=== PATIENT | female | born 1925 | race Caucasian/White ===

== ENCOUNTER 2016-10-02 17:00 | Emergency (ER) | payer MEDICARE, BC, MEDICAID ==
[2016-10-02 17:13] VITALS: BP 120/47
[2016-10-02] MEDS ORDERED: Sodium Chloride 0.9% 10 ML Syringe FLUSH PRN (17:13)
[2016-10-02 18:00] LABS: CHLORIDE,CL 99 mmol/L (101-111); SODIUM,NA 138 mmol/L (135-145)
[2016-10-02] MEDS ORDERED: Sulfamethoxazole/Trimethoprim 800-160 MG Tab PO ONE (19:02)
--- NOTE | 2016-10-02 19:06 | EDM.PDOC ---
{null, ED HPI GENERAL MEDICAL PROBLEM - General Source of Information: Reports: Family, RN, Other (spoke with the DESKTOP SPECIALIST at the [facility] for history taking as well.) History Limitations: Reports: Altered Mental Status <Ochoa Espinosa - Last Filed: 10/02/16 19:07> <Eron Doherty - Last Filed: 10/02/16 19:24> - General Chief Complaint: Neurological Problem Stated Complaint: BY AMBULANCE Time Seen by Provider: 10/02/16 17:15 - History of Present Illness INITIAL COMMENTS - FREE TEXT/NARRATIVE: patient comes emergency Department today by ambulance from the [facility] where she lives in [facility]. History taking from the patient limited as she is rather confused on arrival. I spoke with his DESKTOP SPECIALIST at the [facility] and she reports that the patient was sitting at the dinner table yelled out and was found shaking on the ground. According to the EMS she was postictal and slowly started to wake up. His DESKTOP SPECIALIST reports that this has happened multiple times last time about 2 months ago. The daughter who is an [employer] also reports the same information. She has been worked up for this many times and they have decided not to seek any further treatment due to the rather advanced stage of dementia/Alzheimer's that the patient has. She is a DNR/DNI at this time. Upon arrival the patient is alert she does not answer any questions. (Ochoa Espinosa) - Related Data Allergies Allergy/AdvReac Type Severity Reaction Status Date / Time ceftriaxone Allergy Cannot Verified 10/02/16 17:25 Remember ceftriaxone sodium Allergy Cannot Verified 10/02/16 17:25 [From Rocephin] Remember cefuroxime Allergy Cannot Verified 10/02/16 17:25 Remember flu vaccine ts 2012-(6 Allergy Cannot Verified 10/02/16 17:25 mos+) Remember [From Fluzone [id number]] fluoxetine Allergy Cannot Verified 10/02/16 17:25 Remember hydrochlorothiazide Allergy Cannot Verified 10/02/16 17:25 Remember influenza virus vacc Allergy Cannot Verified 10/02/16 17:25 trivalent, split Remember [From Fluzone] levofloxacin [From Levaquin] Allergy Cannot Verified 10/02/16 17:25 Remember lisinopril Allergy Cannot Verified 10/02/16 17:25 Remember NSAIDS (Non-Steroidal Allergy Cannot Verified 10/02/16 17:25 Anti-Inflamma Remember Penicillins Allergy Cannot Verified 06/03/16 07:10 Remember Home Meds: Home Meds Acetaminophen [Pain Relief] 500 mg PO Q6H PRN 05/09/13 [History] Albuterol Sulfate [Albuterol Sulfate HFA] 2 puff IH QID 05/09/13 [History] Calcium Carb & Citrate/Vit D3 [Calcium + D3 ER Tablet] 1 tab PO BID 05/09/13 [ History] Docusate Sodium [Colace] 100 mg PO DAILY PRN 05/09/13 [History] Fexofenadine HCl [Mary Jane] 180 mg PO DAILY PRN 05/09/13 [History] Furosemide [Lasix] 60 mg PO BID 05/09/13 [History] Lutein/Minerals/Vit A,C & E [I-Mirlande] 1 each PO DAILY 05/09/13 [History] Multivitamin with Minerals [Multiple Vitamin] 1 tab PO DAILY 05/09/13 [History] Omeprazole [Prilosec] 40 mg PO DAILY 05/09/13 [History] Pravastatin [Pravachol] 80 mg PO BEDTIME 05/09/13 [History] Metolazone [Zaroxolyn] 2.5 mg PO .TIW 09/18/13 [History] Metoprolol Succinate [Toprol XL] 25 mg PO DAILY 09/18/13 [History] Potassium Chloride [K-Tab ER] 40 meq PO BID 09/18/13 [History] Allopurinol [Zyloprim] 100 mg PO BID 03/28/14 [History] Docusate Calcium [Surfak] 480 mg PO DAILY 03/28/14 [History] traMADol [Ultram] 50 mg PO Q6H PRN 03/28/14 [History] Mag Hydrox/Al Hydrox/Simeth [Maalox Maximum Strength Susp] 30 ml PO TID PRN 06/30 [History] Potassium Chloride 20 meq PO DAILY 01/15/16 [History] Spironolactone [Aldactone] 25 mg PO DAILY 01/15/16 [History] LORazepam 0.5 mg PO BID PRN 06/03/16 [History] Past Medical History HEENT History: Reports: Hard of Hearing, Impaired Vision, Macular Degeneration Cardiovascular History: Reports: CAD, Heart Failure, High Cholesterol, Hypertension Respiratory History: Reports: COPD Gastrointestinal History: Reports: Gastritis, GI Bleed, Helicobacter Pylori Genitourinary History: Reports: UTI, Recurrent MEDICAL DIRECTOR OF HOSPICE History: Reports: None Musculoskeletal History: Reports: Arthritis, Other (See Below) Other Musculoskeletal History: degenerative disk disease Neurological History: Reports: Seizure Psychiatric History: Reports: Dementia Other Psychiatric History: more frequesnt levels of confusion. Usually O2 is low Hematologic History: Reports: None Immunologic History: Reports: None - Past Surgical History HEENT Surgical History: Reports: Other (See Below) Musculoskeletal Surgical History: Reports: Other (See Below) <Eron Doherty - Last Filed: 10/02/16 19:24> Social & Family History - Family History Family Medical History: Unobtainable - Tobacco Use Smoking Status *Q: Former Smoker Years of Tobacco use: 40 Packs/Tins Daily: 1 Used Tobacco, but Quit: Yes Month Tobacco Last Used: unknown Second Hand Smoke Exposure: No - Caffeine Use Caffeine Use: Reports: None - Alcohol Use Days Per Week of Alcohol Use: 0 - Recreational Drug Use Recreational Drug Use: No Drug Use in Last 12 Months: No - Living Situation & Occupation Living situation: Reports: , Assisted Living Occupation: Retired <Eron Doherty - Last Filed: 10/02/16 19:24> ED ROS GENERAL - Review of Systems Review Of Systems: Unable To Obtain <Ochoa Espinosa - Last Filed: 10/02/16 19:07> - Physical Exam Exam: See Below Exam Limited By: Altered Mental Status General Appearance: Alert, No Apparent Distress Eye Exam: Bilateral Eye: Normal Inspection, PERRL (2 mm PERRLA brisk bilaterally ) Ears: Normal External Exam, Normal Canal, Normal TMs Nose: Normal Inspection, Normal Mucosa, No Blood Throat/Mouth: Normal Inspection, Normal Lips, Normal Oropharynx Head Exam: Atraumatic, Normocephalic Neck: Normal Inspection, Supple, Non-Tender, Full Range of Motion Respiratory/Chest: No Respiratory Distress, Lungs Clear, Normal Breath Sounds, No Accessory Muscle Use Cardiovascular: Normal Peripheral Pulses, Regular Rate, Rhythm, No Murmur GI/Abdominal: Normal Bowel Sounds, Soft, No Distention, No Abnormal Bruit (Female) Exam: Deferred Rectal (Female) Exam: Deferred Neuro Exam (Abbreviated): Alert, Confused, Other (constantly fidgeting and playing with the sheets and the wires. Cooperative but needs redirecting to stay in the bed a time. Does not offer any verbal information.). No: Abnormal Reflexes, Sensory/Motor Deficit Back Exam: Normal Inspection, Full Range of Motion Extremities: Normal Inspection, Normal Capillary Refill, Pedal Edema (2+ edema bilaterally. Which is normal according to the daughter.) Psychiatric: Flat Affect Skin Exam: Warm, Dry, Intact, Normal Color, No Rash <Ochoa Espinosa - Last Filed: 10/02/16 19:07> <Eron Doherty - Last Filed: 10/02/16 19:24> - Physical Exam Text/Narrative:: on arrival the patient is alert and moving all extremities spontaneously. She does not give any verbal information. She is constantly fidgeting playing and pulling the sheets and cords of the bed. Head to toe rapid tremor assessment does not identify any trauma. No hematoma abrasions contusions swelling or breaks in the skin consistent with her fall.the daughter is at the bedside and reports that this is the typical mentation and activity following these episodes of a questionable seizure. (Ochoa Espinosa) EKG INTERPRETATION EKG Date: 10/02/16 Time: 17:07 Rhythm: NSR Rate (beats/min): 109 [place]: normal P-wave: present QRS: normal ST-T: normal QT: normal Comparison: no change <Ochoa Espinosa - Last Filed: 10/02/16 19:07> Course <Ochoa Espinosa - Last Filed: 10/02/16 19:07> <Eron Doherty - Last Filed: 10/02/16 19:24> - Vital Signs Last Recorded V/S: Last Vital Signs Temp 37.3 C 10/02/16 17:13 Pulse 102 H 10/02/16 17:13 Resp 14 10/02/16 17:13 BP 120/47 L 10/02/16 17:13 Pulse Ox 90 L 10/02/16 17:13 (Ochoa Espinosa) (Eron Doherty) - Orders/Labs/Meds Orders: Active Orders 24 hr Category Date Time Status Peripheral IV Care [RC] . DIRECTED Care 10/02/16 17:14 Active Head wo Cont [CT] Stat Exams 10/02/16 17:14 Taken Sodium Chloride 0.9% [Saline Flush] Med 10/02/16 17:13 Active 10 ml FLUSH ASDIRECTED PRN Peripheral IV Insertion Adult [OM.PC] Stat Oth 10/02/16 17:13 Ordered Medication Orders Sodium Chloride (Saline Flush) 10 ml FLUSH ASDIRECTED PRN PRN Reason: Keep Vein Open (Ochoa Espinosa) (Eron Doherty) Labs: Laboratory Tests 10/02/16 10/02/16 10/02/16 Range/Units 17:20 17:30 17:30 WBC 7.1 (5.0-10.0) 10^3/uL RBC 4.48 (4.2-5.4) 10^6/uL Hgb 12.0 (12.0-16.0) g/dL Hct 38.8 (37.0-47.0) % MCV 86.6 (80-100) fL MCH 26.8 L (27.0-34.0) pg MCHC 30.9 L (33.0-35.0) g/dL Plt Count 219 (150-450) 10^3/uL Neut % (Auto) 56.6 (42.2-75.2) % Lymph % (Auto) 30.1 (20.5-50.1) % [place] % (Auto) 10.3 H (2-8) % Eos % (Auto) 2.7 (1.0-3.0) % Baso % (Auto) 0.3 (0.0-1.0) % Sodium 138 (135-145) mmol/L Potassium 4.0 (3.6-5.0) mmol/L Chloride 99 L (101-111) mmol/L Carbon Dioxide 26.0 (21.0-31.0) mmol/L Anion Gap 17.0 BUN 42 H (7-18) mg/dL Creatinine 1.5 H (0.6-1.3) mg/dL Est Cr Clr Drug Dosing 22.39 mL/min Estimated GFR (MDRD) 33 BUN/Creatinine Ratio 28.00 Glucose 136 H (74-105) mg/dL Calcium 9.4 (8.4-10.2) mg/dl Total Bilirubin 0.5 (0.2-1.0) mg/dL AST 31 (10-42) IU/L ALT 15 (10-60) IU/L Alkaline Phosphatase 51 (42-121) IU/L Troponin I < 0.02 (0.00-0.02) ng/ml Total Protein 6.7 (6.7-8.2) g/dl Albumin 3.7 (3.2-5.5) g/dl Globulin 3.0 Albumin/Globulin Ratio 1.23 Urine Color Yellow (YELLOW) Urine Appearance Slightly cloudy (CLEAR) Urine pH 7.0 (5.0-9.0) Ur Specific [place] 1.015 (1.005-1.030) Urine Protein Negative (NEGATIVE) Urine Glucose (UA) Negative (NEGATIVE) Urine Ketones Negative (NEGATIVE) Urine Occult Blood Negative (NEGATIVE) Urine Nitrite Negative (NEGATIVE) Urine Bilirubin Negative (NEGATIVE) Urine Urobilinogen 0.2 (0.2-1.0) mg/dL Ur Leukocyte Esterase Small H (NEGATIVE) Urine RBC 0-5 /HPF Urine WBC 10-20 H (0-5/HPF) /HPF Ur Epithelial Cells Few /HPF Amorphous Sediment Few (0/HPF) /HPF Urine Bacteria Few (0-FEW/HPF) /HPF Urine Mucus Few H /LPF (Ochoa Espinosa) (Eron Doherty) Meds: Medications Generic Name Dose Route Start Last Admin Trade Name Freq PRN Reason Stop Dose Admin Sodium Chloride 10 ml 10/02/16 17:13 Saline Flush FLUSH ASDIRECTED PRN Keep Vein Open Discontinued Medications Generic Name Dose Route Start Last Admin Trade Name Freq PRN Reason Stop Dose Admin Trimethoprim/Sulfamethoxazole 1 tab 10/02/16 19:02 10/02/16 19:18 Septra Ds PO 10/02/16 19:03 1 tab ONETIME ONE Administration (Ochoa Espinosa) (Eron Doherty) - Radiology Interpretation Free Text/Narrative:: CT of the head per radiology no acute intercranial process. Senescent changes of the brain are present. No significant interval change when compared to the CT of 06/03/16. (Ochoa Espinosa) - Re-Assessments/Exams Free Text/Narrative Re-Assessment/Exam: 10/02/16 19:14 HPI ER course findings and care of patient relayed to Dr. Doherty and he assumes care of the patient at this time. The patient is now offering verbal information. And back to baseline according to the daughter. (Ochoa Espinosa ) 10/02/16 19:03 results discussed with family who states Pt has these seizure like activities regularly. only needs to make sure there isn't anything else wrong. also gives h /o UTI and tolerates bactrim well. (Eron Doherty) Departure <Ochoa Espinosa - Last Filed: 10/02/16 19:07> - Departure Time of Disposition: 19:24 Condition: good <Eron Doherty - Last Filed: 10/02/16 19:24> - Departure Disposition: Home, Self-Care 01 Clinical Impression: UTI (urinary tract infection), uncomplicated - Discharge Information Instructions: Urinary Tract Infection, Adult, [id number] Referrals: PCP,None [Primary Care Provider] - Forms: ED Department Discharge Additional Instructions: 1) drink lots of liquids 2) follow up with clinic for repeat u/a in 4 to 5 days 3) recheck as needed rx given: bactrim DS bid x 20 }
--- NOTE | 2016-10-04 13:54 | EKG ---
{null, 10/02/2016- KATTY CASANOVA - 12-lead EKG shows normal sinus rhythm with a heart rate of 109, shows occasional PVCs. 12-lead EKG consistent with left ventricular hypertrophy and possible left atrial enlargement. No significant ST elevation or ST depression noted on this 12-lead EKG. Nonspecific ST-T wave changes noted on lead V3, V4. [facility] /[id number] }
== END 2016-10-02 19:25 | disposition home or self-care (01) ==
LOC: DL.ED 17:00
DX: N39.0 Urinary tract infection, site not specified (principal); I25.10 Atherosclerotic heart disease of native coronary artery without angina pectoris; I11.0 Hypertensive heart disease with heart failure; I50.9 Heart failure, unspecified; E78.00 Pure hypercholesterolemia, unspecified; J44.9 Chronic obstructive pulmonary disease, unspecified; M19.90 Unspecified osteoarthritis, unspecified site; F03.90 Unspecified dementia, unspecified severity, without behavioral disturbance, psychotic disturbance, mood disturbance, and anxiety; Z87.891 Personal history of nicotine dependence; Z79.899 Other long term (current) drug therapy; Z88.0 Allergy status to penicillin; Z88.1 Allergy status to other antibiotic agents; Z88.7 Allergy status to serum and vaccine; Z88.8 Allergy status to other drugs, medicaments and biological substances
CPT/HCPCS: 36415; 70450; 80053; 81001; 84484; 85025; 93005; 93010; 99285; A9270; 99284

== ENCOUNTER 2016-10-06 02:46 | Emergency (ER) | payer MEDICARE, BC, MEDICAID ==
[2016-10-06 02:51] VITALS: BP 97/52
--- NOTE | 2016-10-06 02:57 | EDM.PDOC ---
ED HPI GENERAL MEDICAL PROBLEM - General Chief Complaint: Lower Extremity Injury/Pain Stated Complaint: IN BY AMBULANCE Time Seen by Provider: 10/06/16 02:48 Source of Information: Reports: Patient, EMS History Limitations: Reports: Other (dementia) - History of Present Illness INITIAL COMMENTS - FREE TEXT/NARRATIVE: Fall reported at Assisted living, patient c/o pain to left hip. Prior to fall [place] intermittent dozing and watching TV, Found seated on floor. Awake, alert. Baseline with alzheimers dementia. Last ED visit on patient was noted to be DNR DNI. Onset: Today Location: Reports: Lower Extremity, Left Left Hip Pain Score (Numeric/FACES): 7 - Related Data Allergies Allergy/AdvReac Type Severity Reaction Status Date / Time ceftriaxone Allergy Cannot Verified 10/06/16 02:52 Remember ceftriaxone sodium Allergy Cannot Verified 10/06/16 02:52 [From Rocephin] Remember cefuroxime Allergy Cannot Verified 10/06/16 02:52 Remember flu vaccine ts 2012-(6 Allergy Cannot Verified 10/06/16 02:52 mos+) Remember [From Fluzone [id number]] fluoxetine Allergy Cannot Verified 10/06/16 02:52 Remember hydrochlorothiazide Allergy Cannot Verified 10/06/16 02:52 Remember influenza virus vacc Allergy Cannot Verified 10/06/16 02:52 trivalent, split Remember [From Fluzone] levofloxacin [From Levaquin] Allergy Cannot Verified 10/06/16 02:52 Remember lisinopril Allergy Cannot Verified 10/06/16 02:52 Remember NSAIDS (Non-Steroidal Allergy Cannot Verified 10/06/16 02:52 Anti-Inflamma Remember Penicillins Allergy Cannot Verified 10/06/16 02:52 Remember Home Meds: Home Meds Acetaminophen [Pain Relief] 500 mg PO Q6H PRN 05/09/13 [History] Albuterol Sulfate [Albuterol Sulfate HFA] 2 puff IH QID 05/09/13 [History] Calcium Carb & Citrate/Vit D3 [Calcium + D3 ER Tablet] 1 tab PO BID 05/09/13 [ History] Docusate Sodium [Colace] 100 mg PO DAILY PRN 05/09/13 [History] Fexofenadine HCl [Mary Jane] 180 mg PO DAILY PRN 05/09/13 [History] Furosemide [Lasix] 60 mg PO BID 05/09/13 [History] Lutein/Minerals/Vit A,C & E [I-Mirlande] 1 each PO DAILY 05/09/13 [History] Multivitamin with Minerals [Multiple Vitamin] 1 tab PO DAILY 05/09/13 [History] Omeprazole [Prilosec] 40 mg PO DAILY 05/09/13 [History] Pravastatin [Pravachol] 80 mg PO BEDTIME 05/09/13 [History] Metolazone [Zaroxolyn] 2.5 mg PO .TIW 09/18/13 [History] Metoprolol Succinate [Toprol XL] 25 mg PO DAILY 09/18/13 [History] Potassium Chloride [K-Tab ER] 40 meq PO BID 09/18/13 [History] Allopurinol [Zyloprim] 100 mg PO BID 03/28/14 [History] Docusate Calcium [Surfak] 480 mg PO DAILY 03/28/14 [History] traMADol [Ultram] 50 mg PO Q6H PRN 03/28/14 [History] Mag Hydrox/Al Hydrox/Simeth [Maalox Maximum Strength Susp] 30 ml PO TID PRN 06/30 [History] Potassium Chloride 20 meq PO DAILY 01/15/16 [History] Spironolactone [Aldactone] 25 mg PO DAILY 01/15/16 [History] LORazepam 0.5 mg PO BID PRN 06/03/16 [History] Past Medical History HEENT History: Reports: Hard of Hearing, Impaired Vision, Macular Degeneration Cardiovascular History: Reports: CAD, Heart Failure, High Cholesterol, Hypertension Respiratory History: Reports: COPD Gastrointestinal History: Reports: Gastritis, GI Bleed, Helicobacter Pylori Genitourinary History: Reports: UTI, Recurrent [employer] History: Reports: None Musculoskeletal History: Reports: Arthritis, Other (See Below) Other Musculoskeletal History: degenerative disk disease Neurological History: Reports: Seizure Psychiatric History: Reports: Dementia Other Psychiatric History: more frequesnt levels of confusion. Usually O2 is low Hematologic History: Reports: None Immunologic History: Reports: None - Past Surgical History HEENT Surgical History: Reports: Other (See Below) Musculoskeletal Surgical History: Reports: Other (See Below) Social & Family History - Family History Family Medical History: Unobtainable - Tobacco Use Smoking Status *Q: Former Smoker Years of Tobacco use: 40 Packs/Tins Daily: 1 Used Tobacco, but Quit: Yes Month Tobacco Last Used: unknown Second Hand Smoke Exposure: No - Caffeine Use Caffeine Use: Reports: None - Alcohol Use Days Per Week of Alcohol Use: 0 - Recreational Drug Use Recreational Drug Use: No Drug Use in Last 12 Months: No - Living Situation & Occupation Living situation: Reports: , Assisted Living Occupation: Retired Review of Systems - Review of Systems Review Of Systems: ROS reveals no pertinent complaints other than HPI. Eyes: Reports: Glasses Trauma Exam - Physical Exam Exam: See Below Exam Limited By: No Limitations General Appearance: Reports: Alert, Mild Distress (with movement) Head: Reports: Atraumatic, Normocephalic. Denies: Scalp Ecchymosis, Scalp Hematoma, Scalp Tenderness, Facial Lacerations, [place] Eyes Eyes: Bilateral Eye: EOMI Ears: Reports: Normal External Exam, Normal TMs Nose: Reports: Normal Inspection Throat/Mouth: Reports: Other (upper and lower dentures) Neck: Reports: Non-Tender, Full Range of Motion Respiratory Exam: Reports: No Respiratory Distress, Lungs Clear, Normal Breath Sounds Cardiovascular: Reports: Normal Peripheral Pulses, Regular Rate, Rhythm GI/Abdominal: Reports: Normal Bowel Sounds, Soft, Non-Tender Extremities: Bony-Point Tenderness (left hip ), Pain with Movement, Unable to Bear Weight, Other (pain with minimal movement left hip, leg shortening mild external rotation, deformity at hip. ) Neurologic: Reports: Alert Skin: Reports: Normal Color, Warm/Dry - [place] Coma Score Best Eye Response ([place]): (4) Open Spontaneously Best Verbal Response ([place]): (4) Confused Conversation Best Motor Response ([place]): (6) Obeys Commands Nath[place] Total: 14 Course - Vital Signs Last Recorded V/S: Last Vital Signs Temp 96.6 F 10/06/16 02:50 Pulse 79 10/06/16 02:50 Resp 16 10/06/16 02:50 BP 97/52 L 10/06/16 02:50 Pulse Ox 92 L 10/06/16 02:50 - Orders/Labs/Meds Orders: Active Orders 24 hr Category Date Time Status EKG 12 Lead [EKG Documentation Completion] [RC] URGENT Care 10/06/16 03:03 Active Head wo Cont [CT] Urgent Exams 10/06/16 03:11 Taken Pelvis wo Cont [CT] Urgent Exams 10/06/16 03:16 Taken Labs: Laboratory Tests 10/06/16 10/06/16 10/06/16 Range/Units 03:36 03:36 03:36 WBC 5.3 (5.0-10.0) 10^3/uL RBC 3.94 L (4.2-5.4) 10^6/uL Hgb 10.5 L (12.0-16.0) g/dL Hct 34.2 L (37.0-47.0) % MCV 86.8 (80-100) fL MCH 26.6 L (27.0-34.0) pg MCHC 30.7 L (33.0-35.0) g/dL Plt Count 197 (150-450) 10^3/uL Neut % (Auto) 71.7 (42.2-75.2) % Lymph % (Auto) 15.6 L (20.5-50.1) % [place] % (Auto) 10.0 H (2-8) % Eos % (Auto) 2.3 (1.0-3.0) % Baso % (Auto) 0.4 (0.0-1.0) % Sodium 139 (135-145) mmol/L Potassium 4.3 (3.6-5.0) mmol/L Chloride 101 (101-111) mmol/L Carbon Dioxide 29.0 (21.0-31.0) mmol/L Anion Gap 13.3 BUN 48 H (7-18) mg/dL Creatinine 2.5 H (0.6-1.3) mg/dL Est Cr Clr Drug Dosing TNP Estimated GFR (MDRD) 18 BUN/Creatinine Ratio 19.20 Glucose 110 H (74-105) mg/dL Calcium 9.2 (8.4-10.2) mg/dl Total Bilirubin 0.4 (0.2-1.0) mg/dL AST 28 (10-42) IU/L ALT 17 (10-60) IU/L Alkaline Phosphatase 44 (42-121) IU/L Troponin I < 0.02 (0.00-0.02) ng/ml B-Natriuretic Peptide 167 H (0-100) pg/ml Total Protein 6.1 L (6.7-8.2) g/dl Albumin 3.5 (3.2-5.5) g/dl Globulin 2.6 Albumin/Globulin Ratio 1.35 Urine Color (YELLOW) Urine Appearance (CLEAR) Urine pH (5.0-9.0) Ur Specific [place] (1.005-1.030) Urine Protein (NEGATIVE) Urine Glucose (UA) (NEGATIVE) Urine Ketones (NEGATIVE) Urine Occult Blood (NEGATIVE) Urine Nitrite (NEGATIVE) Urine Bilirubin (NEGATIVE) Urine Urobilinogen (0.2-1.0) mg/dL Ur Leukocyte Esterase (NEGATIVE) Urine RBC /HPF Urine WBC (0-5/HPF) /HPF Ur Epithelial Cells /HPF Amorphous Sediment (0/HPF) /HPF Urine Bacteria (0-FEW/HPF) /HPF 10/06/16 Range/Units 03:50 WBC (5.0-10.0) 10^3/uL RBC (4.2-5.4) 10^6/uL Hgb (12.0-16.0) g/dL Hct (37.0-47.0) % MCV (80-100) fL MCH (27.0-34.0) pg MCHC (33.0-35.0) g/dL Plt Count (150-450) 10^3/uL Neut % (Auto) (42.2-75.2) % Lymph % (Auto) (20.5-50.1) % [place] % (Auto) (2-8) % Eos % (Auto) (1.0-3.0) % Baso % (Auto) (0.0-1.0) % Sodium (135-145) mmol/L Potassium (3.6-5.0) mmol/L Chloride (101-111) mmol/L Carbon Dioxide (21.0-31.0) mmol/L Anion Gap BUN (7-18) mg/dL Creatinine (0.6-1.3) mg/dL Est Cr Clr Drug Dosing Estimated GFR (MDRD) BUN/Creatinine Ratio Glucose (74-105) mg/dL Calcium (8.4-10.2) mg/dl Total Bilirubin (0.2-1.0) mg/dL AST (10-42) IU/L ALT (10-60) IU/L Alkaline Phosphatase (42-121) IU/L Troponin I (0.00-0.02) ng/ml B-Natriuretic Peptide (0-100) pg/ml Total Protein (6.7-8.2) g/dl Albumin (3.2-5.5) g/dl Globulin Albumin/Globulin Ratio Urine Color Yellow (YELLOW) Urine Appearance Slightly cloudy (CLEAR) Urine pH 7.0 (5.0-9.0) Ur Specific [place] 1.015 (1.005-1.030) Urine Protein Negative (NEGATIVE) Urine Glucose (UA) Negative (NEGATIVE) Urine Ketones Negative (NEGATIVE) Urine Occult Blood Negative (NEGATIVE) Urine Nitrite Positive H (NEGATIVE) Urine Bilirubin Negative (NEGATIVE) Urine Urobilinogen 0.2 (0.2-1.0) mg/dL Ur Leukocyte Esterase Moderate H (NEGATIVE) Urine RBC 0-5 /HPF Urine WBC 20-30 H (0-5/HPF) /HPF Ur Epithelial Cells Few /HPF Amorphous Sediment Moderate H (0/HPF) /HPF Urine Bacteria Moderate H (0-FEW/HPF) /HPF Meds: Medications Discontinued Medications Generic Name Dose Route Start Last Admin Trade Name Freq PRN Reason Stop Dose Admin Morphine Sulfate 2 mg 10/06/16 03:44 10/06/16 03:51 Morphine IVPUSH 10/06/16 03:45 2 mg ONETIME ONE Administration Ondansetron HCl 4 mg 10/06/16 03:45 10/06/16 03:51 Zofran IV 10/06/16 03:46 4 mg ONETIME ONE Administration - Radiology Interpretation Free Text/Narrative:: CT head, no acute process, chronic microvascualr ischemic disease CT Hip, left femoral neck fracture - Re-Assessments/Exams Free Text/Narrative Re-Assessment/Exam: 10/06/16 03:56 Left femoral neck fracture on CT. Family aware. Telephone authorization to transfer to [facility] for further management. Dr. Mcmanus accepting. Morphine 2 mg IVP for pain. Resting, O2 sats decrease. O2 via NC with improvement in saturation. Tx via LRAS. Departure - Departure Time of Disposition: 03:54 Disposition: DC/Tfer to Acute Hospital 02 Condition: undetermined Clinical Impression: COPD, Moderate chronic obstructive pulmonary disease, Frequent falls, UTI ( urinary tract infection), uncomplicated, CHF, Congestive heart failure, Coronary arteriosclerosis, CAD, Gastroesophageal reflux disease, Cerebrovascular disease, Hypotension, Low blood pressure, Hyperlipidemia, Gout, Intertrochanteric fracture, hip - Discharge Information Forms: ED Department Discharge - My Orders Last 24 Hours: My Active Orders 10/06/16 03:03 EKG 12 Lead [EKG Documentation Completion] [RC] URGENT 10/06/16 03:11 Head wo Cont [CT] Urgent 10/06/16 03:16 Pelvis wo Cont [CT] Urgent - Assessment/Plan Last 24 Hours: My Active Orders 10/06/16 03:03 EKG 12 Lead [EKG Documentation Completion] [RC] URGENT 10/06/16 03:11 Head wo Cont [CT] Urgent 10/06/16 03:16 Pelvis wo Cont [CT] Urgent
[2016-10-06] MEDS ORDERED: Morphine 2 MG/ML Syringe IVPUSH ONE (03:44)
[2016-10-06] MEDS ORDERED: Ondansetron 4 MG/2 ML SDV IV ONE (03:45)
[2016-10-06 04:03] LABS: CHLORIDE,CL 101 mmol/L (101-111); SODIUM,NA 139 mmol/L (135-145)
--- NOTE | 2016-10-09 14:28 | EKG ---
10/06/2016 - KATTY CASANOVA - TIME: 3:30. EKG per my reading, shows sinus rhythm with no acute ST changes. [facility] /[id number]
== END 2016-10-06 04:20 ==
LOC: DL.ED 02:46
DX: S72.142A Displaced intertrochanteric fracture of left femur, initial encounter for closed fracture (principal); J44.9 Chronic obstructive pulmonary disease, unspecified; N39.0 Urinary tract infection, site not specified; I11.0 Hypertensive heart disease with heart failure; I50.9 Heart failure, unspecified; I25.10 Atherosclerotic heart disease of native coronary artery without angina pectoris; K21.9 Gastro-esophageal reflux disease without esophagitis; I95.9 Hypotension, unspecified; I67.9 Cerebrovascular disease, unspecified; E78.5 Hyperlipidemia, unspecified; M10.9 Gout, unspecified; M19.90 Unspecified osteoarthritis, unspecified site; Z88.7 Allergy status to serum and vaccine; Z88.8 Allergy status to other drugs, medicaments and biological substances; Z88.0 Allergy status to penicillin; Z79.899 Other long term (current) drug therapy; W19.XXXA Unspecified fall, initial encounter
CPT/HCPCS: 36415; 70450; 72192; 80053; 81001; 83880; 84484; 85025; 93005; 96374; 96375; 99285; J2270; J2405; 99284